=== PATIENT | female | born 1945 | race Caucasian/White ===

== ENCOUNTER 2024-10-06 12:29 | Outpatient (CLI) | payer MEDICARE, MEDICAID ==
[~2024-10-06 12:29] MED LIST: ALBU8.5H17 IH; ANUHCCR TP; ASPI-1071 PO; CALC260T6 PO; CARV6.253; CEFD300C3 PO; CLOT15CR74 TP; CYCL-1 PO; DOCU100C43 PO; DULO-31 PO; EMPA10TA; FEXO180T94 PO; FLUT1DIS4 INH; LYR25C PO; MET0.75G TP; NIA500ERT PO; PANT-47 PO; SACU1TAB7 PO; SILV50CR31 TP; SYN0.088T PO
--- NOTE | 2024-10-06 13:35 | RADIOLOGY REPORT ---
Procedure: CT CT CHEST Reason for study/Clinical History: SOLITARY PULMONARY NODULE Comparison Study: 07/05/2024. Exam Date: 10/06/2024 01:03 PM TECHNIQUE: Multidetector CT of the chest was performed from the lung apices to the upper abdomen with out the use of intravenous contract. Axial, coronal and sagittal multiplanar reformats were performed . Radiation Dose Information: CT Dose: CTDI volume is 18 mGy. Dose-length product is 612 mGy*cm The dose indicators for CT are the volume Computed Tomography (CT) Dose Index (CTDIvol) and the Dose Length Product (DLP), and are measured in units of mGy and mGy-cm, respectively. These indicators are not patient dose, but values generated from the CT scanner acquisition factors. The report includes radiation exposure data for exposures received during this examination. FINDINGS: Lower neck: Normal thyroid. Lungs: Faint focal infiltrates are seen in the lingula, the left lower lobe, and in portions of the r ight middle and lower lobes. No solitary pulmonary nodule Heart/Vascular Structures: Heart size is enlarged. No pericardial effusion. Spotty calcification in t he coronary arteries. Lymph Nodes: No adenopathy Pleura: No pleural effusion or significant pneumothorax. Musculoskeletal: No acute osseous abnormality. Soft tissues: Normal. Upper abdomen: Limited portions of the upper abdomen are unremarkable. IMPRESSION: 1. Minimal faint bibasilar infiltrates and right middle lobe and lingular infiltrates. No evidence of solitary pulmonary nodule 2. Cardiomegaly with signs of chronic hypertensive atherosclerotic cardiovascular disease Radiation optimization: All CT scans at this facility use at least one of these dose optimization kelin hniques: automated exposure control mA and/or kV adjustment per patient size (includes targeted exam s where dose is matched to clinical indication) or iterative reconstruction.
== END 2024-10-06 23:59 | disposition home or self-care (01) ==
LOC: RAD 12:29
PROVIDERS: ATTEND Student in an Organized Health Care Education/Training Program
DX: R91.1 Solitary pulmonary nodule (principal); I25.10 Atherosclerotic heart disease of native coronary artery without angina pectoris; I11.9 Hypertensive heart disease without heart failure
CPT/HCPCS: 71250